=== PATIENT | male | born 1985 | race African-American/Black ===

== ENCOUNTER 2021-11-11 17:46 | Inpatient (IN) | payer OTHER ==
[2021-11-11 19:43] VITALS: BMI 22.1
[2021-11-11] MEDS ORDERED: MAG HYDROX/AL HYDROX/SIMETH 30 ML UNIT-DOSE CUP PO PRN (21:11)
[2021-11-11] MEDS ORDERED: IBUPROFEN 600 MG TABLET (FP) PO PRN (21:11)
[2021-11-11] MEDS ORDERED: P-EPHED 60MG/TRIPROLIDI 2.5MG TABLET PO PRN (21:11)
[2021-11-11] MEDS ORDERED: ACETAMINOPHEN 325 MG TABLET (FP) PO PRN ×2 (21:11)
[2021-11-11] MEDS ORDERED: guaiFENesin 200 MG/10 ML 10 ML UNIT-DOSE CUPS PO PRN (21:11)
[2021-11-11] MEDS ORDERED: NICOTINE POLACRILEX 2 MG GUM BUC PRN (21:11)
[2021-11-11] MEDS ORDERED: BISMUTH SUBSALICYLATE 524 MG/30 ML PO PRN (21:11)
[2021-11-11] MEDS ORDERED: BENZOCAINE/MENTHOL (CHLORASEPTIC ) LOZENGE MM PRN (21:11)
[2021-11-11] MEDS ORDERED: MAGNESIUM CITRATE 300 ML BOTTLE PO PRN (21:11)
[2021-11-11] MEDS ORDERED: DICYCLOMINE HCL 10 MG CAPSULE PO PRN (21:11)
[2021-11-11] MEDS ORDERED: MAGNESIUM HYDROX 2400MG/30ML ORAL SUSPENSION 30 ML CUP PO PRN (21:11)
[2021-11-11] MEDS ORDERED: LOPERAMIDE HCL 2 MG CAPSULE PO PRN (21:11)
[2021-11-11] MEDS ORDERED: ONDANSETRON *ODT* 4 MG TABLET SL PRN (21:11)
[2021-11-11] MEDS ORDERED: MELATONIN 5 MG TABLETS PO PRN (21:11)
[2021-11-11] MEDS ORDERED: cloNIDine HCL 0.1 MG TABLET PO PRN (21:14)
[2021-11-11] MEDS: diazePAM 5 MG TABLET PO SCH (23:41)
[2021-11-11] MEDS: THIAMINE HCL 100 MG TABLET (FP) PO SCH (23:42)
[2021-11-11] MEDS: IBUPROFEN 400 MG TABLET (FP) PO PRN (23:42)
[2021-11-11] MEDS: METHOCARBAMOL 500 MG TABLET PO PRN (23:43)
[2021-11-12] MEDS: diazePAM 5 MG TABLET PO SCH ×4 (07:26→22:23)
[2021-11-12] MEDS: METHOCARBAMOL 500 MG TABLET PO PRN (07:28)
[2021-11-12] MEDS: IBUPROFEN 400 MG TABLET (FP) PO PRN (07:28)
[2021-11-12] MEDS: PRENATAL VITAMINS W/ FOLIC ACID TABLET (FP) PO SCH (10:25)
[2021-11-12 10:44] LABS: HEMATOCRIT 44.4 % (35.4-49); HEMOGLOBIN 14.8 GM/dL (11.7-16.9); MCH 28.6 pg (25.7-33.7); MCHC 33.4 g/dl (32.0-35.9); MEAN CELL VOLUME 85.7 fl (80-96); PLATELET COUNT 282 10^3/uL (134-434); RBC 5.18 M/mm3 (4.00-5.60); RDW 14.3 % (11.9-15.9); WHITE BLOOD COUNT 4.2 K/mm3 (4.0-10.0)
[2021-11-12 11:03] LABS: CALCIUM 9.6 mg/dL (8.5-10.1)
[2021-11-12 11:04] LABS: ALBUMIN 3.7 g/dl (3.4-5.0)
[2021-11-12 11:07] LABS: CREATININE 1.2 mg/dL (0.55-1.3)
[2021-11-12 11:08] LABS: BILIRUBIN,TOTAL 1.5 mg/dL (0.2-1); TOT PROT 7.1 g/dl (6.4-8.2)
[2021-11-12] MEDS ORDERED: methaDONE HCL 10 MG TABLET (FOR DETOX USE ONLY) PO ONE (11:29)
[2021-11-12 11:58] LABS: HIV INTERPRETATION NEGATIVE (NEGATIVE)
[2021-11-12] MEDS: THIAMINE HCL 100 MG TABLET (FP) PO SCH (22:23)
[2021-11-12] MEDS: SUVOREXANT 10 MG TABLET PO PRN (22:24)
[2021-11-13] MEDS: cloNIDine HCL 0.1 MG TABLET PO PRN ×2 (05:16→10:27)
[2021-11-13] MEDS: diazePAM 5 MG TABLET PO SCH ×3 (05:17→22:33)
[2021-11-13] MEDS: PRENATAL VITAMINS W/ FOLIC ACID TABLET (FP) PO SCH (10:25)
[2021-11-13] MEDS: hydrOXYzine PAMOATE 25 MG CAPSULE (FP) PO PRN (10:26)
[2021-11-13] MEDS: METHOCARBAMOL 500 MG TABLET PO PRN (10:27)
[2021-11-13] MEDS: diazePAM 5 MG TABLET PO PRN (10:27)
[2021-11-13] MEDS: THIAMINE HCL 100 MG TABLET (FP) PO SCH (22:33)
[2021-11-13] MEDS: SUVOREXANT 10 MG TABLET PO PRN (22:33)
[2021-11-14] MEDS: diazePAM 5 MG TABLET PO SCH ×2 (05:01→18:32)
[2021-11-14] MEDS ORDERED: methaDONE HCL 10 MG TABLET (FOR DETOX USE ONLY) PO ONE (10:00)
[2021-11-14 10:14] VITALS: RESP 18
[2021-11-14] MEDS: diazePAM 5 MG TABLET PO PRN (10:31)
[2021-11-14] MEDS: PRENATAL VITAMINS W/ FOLIC ACID TABLET (FP) PO SCH (10:31)
[2021-11-14] MEDS: METHOCARBAMOL 500 MG TABLET PO PRN (10:31)
[2021-11-14] MEDS: THIAMINE HCL 100 MG TABLET (FP) PO SCH (22:36)
[2021-11-14] MEDS: hydrOXYzine PAMOATE 25 MG CAPSULE (FP) PO PRN (22:37)
[2021-11-14] MEDS: cloNIDine HCL 0.1 MG TABLET PO PRN (22:37)
[2021-11-14] MEDS: SUVOREXANT 10 MG TABLET PO PRN (22:38)
[2021-11-15] MEDS ORDERED: diazePAM 5 MG TABLET PO ONE (06:00)
[2021-11-15 09:06] VITALS: BP 148/82; PULSE 67; TEMP 97.5
[2021-11-15] MEDS: PRENATAL VITAMINS W/ FOLIC ACID TABLET (FP) PO SCH (10:44)
[2021-11-16] MEDS ORDERED: methaDONE HCL 10 MG TABLET (FOR DETOX USE ONLY) PO ONE (10:00)
== END 2021-11-15 09:35 | disposition home or self-care (01) | DRG 773 ==
LOC: YASAS 17:46 → Y6N 19:15
PROVIDERS: ADMIT Allergy & Immunology; ATTEND Surgery
PROC: HZ2ZZZZ Detoxification Services for Substance Abuse Treatment (ICD-10-PCS; principal; 2021-11-11)
DX: F11.23 Opioid dependence with withdrawal (principal); F10.230 Alcohol dependence with withdrawal, uncomplicated; F17.210 Nicotine dependence, cigarettes, uncomplicated; F19.282 Other psychoactive substance dependence with psychoactive substance-induced sleep disorder; F19.24 Other psychoactive substance dependence with psychoactive substance-induced mood disorder; Z28.310 Unvaccinated for COVID-19; Z56.0 Unemployment, unspecified
CPT/HCPCS: 36415; 80053; 82247; 85027; 86780; 87389; 87811; C9803-CS; J0735; U0003; U0005

== ENCOUNTER 2022-04-27 10:54 | Inpatient (IN) | payer OTHER ==
[2022-04-27 11:19] VITALS: BMI 22.7
[2022-04-27] MEDS ORDERED: ACETAMINOPHEN 325 MG TABLET (FP) PO PRN (11:50)
[2022-04-27] MEDS ORDERED: LOPERAMIDE HCL 2 MG CAPSULE PO PRN (11:50)
[2022-04-27] MEDS ORDERED: BENZOCAINE/MENTHOL (CHLORASEPTIC ) LOZENGE MM PRN (11:50)
[2022-04-27] MEDS ORDERED: ONDANSETRON *ODT* 4 MG TABLET SL PRN (11:50)
[2022-04-27] MEDS ORDERED: DICYCLOMINE HCL 10 MG CAPSULE PO PRN (11:50)
[2022-04-27] MEDS ORDERED: MAG HYDROX/AL HYDROX/SIMETH 30 ML UNIT-DOSE CUP PO PRN (11:50)
[2022-04-27] MEDS ORDERED: MAGNESIUM HYDROX 2400MG/30ML ORAL SUSPENSION 30 ML CUP PO PRN (11:50)
[2022-04-27] MEDS ORDERED: IBUPROFEN 600 MG TABLET (FP) PO PRN (11:50)
[2022-04-27] MEDS ORDERED: BISMUTH SUBSALICYLATE 524 MG/30 ML PO PRN (11:50)
[2022-04-27] MEDS ORDERED: NICOTINE 10 MG CARTRIDGE (INHALER) IH PRN (11:50)
[2022-04-27] MEDS ORDERED: IBUPROFEN 400 MG TABLET (FP) PO PRN (11:50)
[2022-04-27] MEDS ORDERED: POLYETHYLENE GLYCOL (HEALTHYLAX) 3350 17 GM PACKET PO PRN (11:50)
[2022-04-27] MEDS ORDERED: NALOXONE HCL (KLOXXADO) 8 MG SPRAY NS PRN (11:50)
[2022-04-27] MEDS: PRENATAL VITAMINS W/ FOLIC ACID TABLET (FP) PO SCH (12:48)
[2022-04-27 17:51] LABS: HEMATOCRIT 41.2 % (35.4-49); HEMOGLOBIN 13.5 GM/dL (11.7-16.9); MCH 28.6 pg (25.7-33.7); MCHC 32.7 g/dl (32.0-35.9); MEAN CELL VOLUME 87.6 fl (80-96); MEAN PLT VOLUME 9.5 fl (7.5-11.1); PLATELET COUNT 274 10^3/uL (134-434); RDW 14.9 % (11.9-15.9); WHITE BLOOD COUNT 5.9 K/mm3 (4.0-10.0)
[2022-04-27 18:00] LABS: ALBUMIN 3.6 g/dl (3.4-5.0); BLOOD UREA NITROGEN 14.9 mg/dL (7-18)
[2022-04-27 18:03] LABS: CREATININE 1.2 mg/dL (0.55-1.3)
[2022-04-27 18:05] LABS: BILIRUBIN,TOTAL 0.6 mg/dL (0.2-1); TOT PROT 6.7 g/dl (6.4-8.2)
[2022-04-27 18:55] LABS: HIV INTERPRETATION NEGATIVE (NEGATIVE)
[2022-04-27] MEDS: MELATONIN 5 MG TABLETS PO SCH (22:29)
[2022-04-27] MEDS: THIAMINE HCL 100 MG TABLET (FP) PO SCH (22:29)
[2022-04-27] MEDS: METHOCARBAMOL 500 MG TABLET PO PRN (22:30)
[2022-04-27] MEDS: hydrOXYzine PAMOATE 25 MG CAPSULE (FP) PO PRN (22:30)
[2022-04-28] MEDS: hydrOXYzine PAMOATE 25 MG CAPSULE (FP) PO PRN ×2 (04:47→17:27)
[2022-04-28] MEDS: METHOCARBAMOL 500 MG TABLET PO PRN ×2 (04:47→22:11)
[2022-04-28] MEDS: PRENATAL VITAMINS W/ FOLIC ACID TABLET (FP) PO SCH (09:39)
[2022-04-28] MEDS ORDERED: diazePAM 5 MG TABLET PO ONE (09:45)
[2022-04-28] MEDS ORDERED: methaDONE HCL 10 MG TABLET (FOR DETOX USE ONLY) PO ONE (11:23)
[2022-04-28] MEDS: diazePAM 5 MG TABLET PO SCH ×3 (11:36→22:11)
[2022-04-28] MEDS: diazePAM 5 MG TABLET PO PRN (14:10)
[2022-04-28] MEDS: MELATONIN 5 MG TABLETS PO SCH (22:10)
[2022-04-28] MEDS: THIAMINE HCL 100 MG TABLET (FP) PO SCH (22:11)
[2022-04-28] MEDS: ACETAMINOPHEN 325 MG TABLET (FP) PO PRN (22:12)
[2022-04-29] MEDS: diazePAM 5 MG TABLET PO SCH ×3 (05:37→22:15)
[2022-04-29] MEDS: hydrOXYzine PAMOATE 25 MG CAPSULE (FP) PO PRN ×2 (05:38→22:14)
[2022-04-29] MEDS: METHOCARBAMOL 500 MG TABLET PO PRN ×2 (05:38→18:00)
[2022-04-29] MEDS: PRENATAL VITAMINS W/ FOLIC ACID TABLET (FP) PO SCH (10:11)
[2022-04-29] MEDS: diazePAM 5 MG TABLET PO PRN ×2 (10:14→18:00)
[2022-04-29] MEDS: cloNIDine HCL 0.1 MG TABLET PO PRN (10:25)
[2022-04-29] MEDS: THIAMINE HCL 100 MG TABLET (FP) PO SCH (22:14)
[2022-04-29] MEDS: MELATONIN 5 MG TABLETS PO SCH (22:14)
[2022-04-30] MEDS: diazePAM 5 MG TABLET PO SCH ×2 (05:52→17:35)
[2022-04-30] MEDS: hydrOXYzine PAMOATE 25 MG CAPSULE (FP) PO PRN ×2 (05:53→22:13)
[2022-04-30] MEDS: METHOCARBAMOL 500 MG TABLET PO PRN ×2 (05:53→22:13)
[2022-04-30] MEDS ORDERED: methaDONE HCL 10 MG TABLET (FOR DETOX USE ONLY) PO ONE (10:00)
[2022-04-30] MEDS: PRENATAL VITAMINS W/ FOLIC ACID TABLET (FP) PO SCH (10:09)
[2022-04-30] MEDS: diazePAM 5 MG TABLET PO PRN (10:11)
[2022-04-30] MEDS: cloNIDine HCL 0.1 MG TABLET PO PRN ×2 (10:11→17:39)
[2022-04-30] MEDS: ACETAMINOPHEN 325 MG TABLET (FP) PO PRN (17:36)
[2022-04-30] MEDS: MELATONIN 5 MG TABLETS PO SCH (22:12)
[2022-04-30] MEDS: THIAMINE HCL 100 MG TABLET (FP) PO SCH (22:13)
[2022-05-01] MEDS: hydrOXYzine PAMOATE 25 MG CAPSULE (FP) PO PRN ×2 (05:52→22:29)
[2022-05-01] MEDS: METHOCARBAMOL 500 MG TABLET PO PRN ×2 (05:52→22:29)
[2022-05-01] MEDS ORDERED: diazePAM 5 MG TABLET PO ONE (06:00)
[2022-05-01] MEDS: PRENATAL VITAMINS W/ FOLIC ACID TABLET (FP) PO SCH (10:08)
[2022-05-01] MEDS: THIAMINE HCL 100 MG TABLET (FP) PO SCH (22:29)
[2022-05-01] MEDS: MELATONIN 5 MG TABLETS PO SCH (22:30)
[2022-05-02] MEDS ORDERED: methaDONE HCL 10 MG TABLET (FOR DETOX USE ONLY) PO ONE (10:00)
[2022-05-02] MEDS: PRENATAL VITAMINS W/ FOLIC ACID TABLET (FP) PO SCH (10:11)
[2022-05-02] MEDS: MELATONIN 5 MG TABLETS PO SCH (22:14)
[2022-05-02] MEDS: METHOCARBAMOL 500 MG TABLET PO PRN (22:14)
[2022-05-02] MEDS: hydrOXYzine PAMOATE 25 MG CAPSULE (FP) PO PRN (22:14)
[2022-05-02] MEDS: THIAMINE HCL 100 MG TABLET (FP) PO SCH (22:15)
[2022-05-03 05:56] VITALS: RESP 16
[2022-05-03 08:49] VITALS: BP 139/82; PULSE 66; TEMP 97.3
[2022-05-03] MEDS: PRENATAL VITAMINS W/ FOLIC ACID TABLET (FP) PO SCH (10:03)
== END 2022-05-03 10:44 | disposition home or self-care (01) | DRG 773 ==
LOC: YASAS 10:54 → Y3N 12:18
PROVIDERS: ADMIT Allergy & Immunology; ATTEND Family Medicine
PROC: HZ2ZZZZ Detoxification Services for Substance Abuse Treatment (ICD-10-PCS; principal; 2022-04-27)
DX: F11.23 Opioid dependence with withdrawal (principal); F10.230 Alcohol dependence with withdrawal, uncomplicated; F13.20 Sedative, hypnotic or anxiolytic dependence, uncomplicated; F17.210 Nicotine dependence, cigarettes, uncomplicated; I10 Essential (primary) hypertension; Z28.310 Unvaccinated for COVID-19; Z28.9 Immunization not carried out for unspecified reason
CPT/HCPCS: 36415; 80053; 85027; 86780; 87389; 87811; C9803-CS; U0003; U0005

== ENCOUNTER 2023-06-09 09:29 | Inpatient (IN) | payer OTHER ==
[2023-06-09] MEDS ORDERED: chlordiazePOXIDE HCL 25 MG CAPSULE PO PRN (10:29)
[2023-06-09] MEDS ORDERED: methaDONE HCL 10 MG TABLET (FOR DETOX USE ONLY) ONE (10:45)
[2023-06-09] MEDS: methaDONE HCL 10 MG TABLET (FOR DETOX USE ONLY) PO ONE (10:55)
[2023-06-09] MEDS ORDERED: MAGNESIUM HYDROX 2400MG/30ML ORAL SUSPENSION 30 ML CUP PO PRN (10:56)
[2023-06-09] MEDS ORDERED: NALOXONE HCL (KLOXXADO) 8 MG SPRAY NS PRN (10:56)
[2023-06-09] MEDS ORDERED: BENZONATATE 200 MG CAPSULE PO PRN (10:56)
[2023-06-09] MEDS ORDERED: BENZOCAINE/MENTHOL (CHLORASEPTIC ) LOZENGE MM PRN (10:56)
[2023-06-09] MEDS ORDERED: IBUPROFEN 400 MG TABLET (FP) PO PRN (10:56)
[2023-06-09] MEDS ORDERED: MAG HYDROX/AL HYDROX/SIMETH 30 ML UNIT-DOSE CUP PO PRN (10:56)
[2023-06-09] MEDS ORDERED: POLYETHYLENE GLYCOL (HEALTHYLAX) 3350 17 GM PACKET PO PRN (10:56)
[2023-06-09] MEDS ORDERED: IBUPROFEN 600 MG TABLET (FP) PO PRN (10:56)
[2023-06-09] MEDS ORDERED: guaiFENesin 600 MG TABLET.ER (FP) PO PRN (10:56)
[2023-06-09] MEDS ORDERED: LOPERAMIDE HCL 2 MG CAPSULE PO PRN (10:56)
[2023-06-09] MEDS ORDERED: hydrOXYzine PAMOATE 25 MG CAPSULE (FP) PO PRN (10:56)
[2023-06-09] MEDS ORDERED: DICYCLOMINE HCL 10 MG CAPSULE PO PRN (10:56)
[2023-06-09] MEDS ORDERED: NALOXONE HCL 0.4 MG/ML VIAL IM PRN (10:56)
[2023-06-09] MEDS ORDERED: ACETAMINOPHEN 325 MG TABLET (FP) PO PRN (10:56)
[2023-06-09] MEDS ORDERED: BISMUTH SUBSALICYLATE 524 MG/30 ML PO PRN (10:56)
[2023-06-09] MEDS ORDERED: chlordiazePOXIDE HCL 25 MG CAPSULE ONE (11:14)
[2023-06-09] MEDS: chlordiazePOXIDE HCL 25 MG CAPSULE PO SCH (11:15)
[2023-06-09] MEDS: ONDANSETRON *ODT* 4 MG TABLET SL PRN (13:58)
[2023-06-09] MEDS: TRIMETHOBENZAMIDE HCL 200MG/2ML INJ IM PRN (17:04)
[2023-06-09] MEDS: cloNIDine HCL 0.1 MG TABLET PO PRN (23:01)
[2023-06-09] MEDS: MELATONIN 5 MG TABLETS PO SCH (23:19)
[2023-06-09] MEDS: THIAMINE HCL 100 MG TABLET (FP) PO SCH (23:19)
[2023-06-10] MEDS: PRENATAL VITAMINS W/ FOLIC ACID TABLET (FP) PO SCH (10:12)
[2023-06-10 12:27] LABS: CHLORIDE 102 mmol/L (98-107); POTASSIUM 3.7 mmol/L (3.5-5.1); SODIUM 138 mmol/L (136-145)
[2023-06-10 12:29] LABS: CALCIUM 10.2 mg/dL (8.5-10.1)
[2023-06-10 12:30] LABS: ALBUMIN 4.3 g/dl (3.4-5.0); ANION GAP 13 mmol/L (4-13); BLOOD UREA NITROGEN 17.5 mg/dL (7-18); CO2 24 mmol/L (21-32); GLUCOSE,RANDOM 86 mg/dL (74-106)
[2023-06-10 12:33] LABS: CREATININE 1.2 mg/dL (0.55-1.3); SGOT/AST 76 U/L (15-37); SGPT/ALT 26 U/L (13-61)
[2023-06-10 12:34] LABS: BILIRUBIN,TOTAL 1.2 mg/dL (0.2-1); TOT PROT 8.5 g/dl (6.4-8.2)
[2023-06-10 12:35] LABS: ALK PHOS 99 U/L (45-117)
[2023-06-10 14:39] LABS: HEMATOCRIT 47.4 % (35.4-49); HEMOGLOBIN 15.7 GM/dL (11.7-16.9); MCH 27.7 pg (25.7-33.7); MCHC 33.2 g/dl (32.0-35.9); MEAN CELL VOLUME 83.7 fl (80-96); MEAN PLT VOLUME 9.6 fl (7.5-11.1); PLATELET COUNT 299 10^3/uL (134-434); RBC 5.67 M/mm3 (4.00-5.60); RDW 15.6 % (11.9-15.9); WHITE BLOOD COUNT 12.8 K/mm3 (4.0-10.0)
[2023-06-10] MEDS: METHOCARBAMOL 500 MG TABLET PO PRN (23:00)
[2023-06-11] MEDS: chlordiazePOXIDE HCL 25 MG CAPSULE PO SCH ×2 (05:45→18:07)
[2023-06-11] MEDS: methaDONE HCL 10 MG TABLET (FOR DETOX USE ONLY) PO ONE (10:26)
[2023-06-11 12:15] LABS: BASO % 0.5 % (0-2.0); EOS % 0.1 % (0-4.5); HEMATOCRIT 50.6 % (35.4-49); HEMOGLOBIN 16.2 GM/dL (11.7-16.9); LYMPH % 33.9 % (8-40); MCH 27.1 pg (25.7-33.7); MCHC 32.1 g/dl (32.0-35.9); MEAN CELL VOLUME 84.3 fl (80-96); MEAN PLT VOLUME 9.5 fl (7.5-11.1); MONO % 7.4 % (3.8-10.2); NEUT % 58.1 % (42.8-82.8); PLATELET COUNT 326 10^3/uL (134-434); RDW 15.3 % (11.9-15.9)
[2023-06-11 12:20] LABS: POTASSIUM 3.6 mmol/L (3.5-5.1)
[2023-06-11 12:32] LABS: CALCIUM 9.7 mg/dL (8.5-10.1)
[2023-06-11 12:33] LABS: BLOOD UREA NITROGEN 16.9 mg/dL (7-18)
[2023-06-11 12:35] LABS: CREATININE 1.2 mg/dL (0.55-1.3)
[2023-06-11 12:37] LABS: BILIRUBIN,TOTAL 1.6 mg/dL (0.2-1); TOT PROT 8.2 g/dl (6.4-8.2)
[2023-06-12] MEDS ORDERED: chlordiazePOXIDE HCL 10 MG CAPSULE PO PRN
[2023-06-12] MEDS: chlordiazePOXIDE HCL 10 MG CAPSULE PO SCH ×2 (05:47→18:06)
[2023-06-13] MEDS: chlordiazePOXIDE HCL 10 MG CAPSULE PO SCH (05:44)
[2023-06-13] MEDS: methaDONE HCL 10 MG TABLET (FOR DETOX USE ONLY) PO ONE (10:26)
[2023-06-14] MEDS: chlordiazePOXIDE HCL 10 MG CAPSULE PO ONE (05:49)
[2023-06-14 09:22] VITALS: BP 124/75; PULSE 83; RESP 18; TEMP 98
== END 2023-06-14 11:55 | disposition home or self-care (01) | DRG 773 ==
LOC: YASAS 09:29 → Y6N 11:08
PROVIDERS: ADMIT Allergy & Immunology; ATTEND Surgery
PROC: HZ2ZZZZ Detoxification Services for Substance Abuse Treatment (ICD-10-PCS; principal; 2023-06-09)
DX: F11.23 Opioid dependence with withdrawal (principal); F10.230 Alcohol dependence with withdrawal, uncomplicated; F17.210 Nicotine dependence, cigarettes, uncomplicated; Z28.310 Unvaccinated for COVID-19; Z28.9 Immunization not carried out for unspecified reason
CPT/HCPCS: 0241U-QW; 36415; 80053; 80307; 82140; 83690; 85025; 85027; 86780; 87635; 87811; 93005; 93010; 99282-25; Q0162